=== PATIENT | male | born 1945 | race Asian ===

== ENCOUNTER 2018-02-14 07:41 | Inpatient (IN) | payer OTHER, MEDICAID ==
[~2018-02-14] VITALS: Ht 160 cm; Wt 51.8 kg
[~2018-02-14 07:41] MED LIST: NITROSTAT0.4 MG; SIMVASTATIN10 M1 PO
[2018-02-14 07:53] VITALS: Ht 160 cm; Wt 51.8 kg
[2018-02-14 07:59] LABS: BASOPHIL % 0.5 % (0-2); PLATELET COUNT 215 x10^3mcL (130-400); RED CELL DISTRIBUTION WIDTH 11.9 % (11.5-14.5)
[2018-02-14 08:07] LABS: CALCIUM 8.5 mg/dL (8.5-10.1); CHLORIDE SERUM 103 mmol/L (98-107); CREATININE SERUM 0.9 mg/dL (0.7-1.3); GLUCOSE SERUM 132 mg/dL (74-106); SODIUM SERUM 140 mmol/L (136-145)
[2018-02-14 08:13] LABS: ALBUMIN 3.6 g/dL (3.4-5.0); ALKALINE PHOSPHATASE 87 U/L (46-116); ALT/SGPT 26 U/L (16-63); AST/SGOT 18 U/L (15-37); TOTAL PROTEIN, SERUM 6.9 g/dL (6.4-8.2)
[2018-02-14 11:08] LABS: CHOLESTEROL/HDL RATIO 4.3; MAGNESIUM 2.1 mg/dL (1.8-2.4)
[2018-02-14 11:09] LABS: T3 TOTAL 1.1 ng/mL
[2018-02-14 11:38] LABS: FREE T4 0.97 ng/dL (0.76-1.46); FREE THYROXINE INDEX 2.6 ug/dL (1.4-4.5); T4(THYROXINE) 7.5 ug/dL (4.7-13.3)
[2018-02-14 11:51] VITALS: BP 106/57
[2018-02-14 17:08] VITALS: BP 121/68
[2018-02-14 17:45] LABS: microscopic required? NO
[2018-02-14 17:52] LABS: UA SPECIFIC GRAVITY 1.015 (1.005-1.035); urine erythrocyte NEGATIVE (NEGATIVE)
[2018-02-14 19:20] LABS: AMPHETAMINE QUAL UR NONE DETECTED (NEG <=1000)
[2018-02-14 20:34] VITALS: BP 125/70
[2018-02-15 06:39] VITALS: BP 114/58
[2018-02-15 07:57] LABS: BASOPHIL % 0.4 % (0-2); PLATELET COUNT 183 x10^3mcL (130-400)
[2018-02-15 07:59] LABS: RED CELL DISTRIBUTION WIDTH 11.4 % (11.5-14.5)
[2018-02-15 08:18] LABS: CALCIUM 8.7 mg/dL (8.5-10.1); CARBON DIOXIDE 31.3 mmol/L (21-32); CHLORIDE SERUM 106 mmol/L (98-107); CREATININE SERUM 0.7 mg/dL (0.7-1.3); GLUCOSE SERUM 85 mg/dL (74-106); SODIUM SERUM 140 mmol/L (136-145)
[2018-02-15 09:29] VITALS: BP 106/63
[2018-02-15] MEDS ORDERED: GOOD SENSE ASPI81 M3 PO (12:46)
[2018-02-15] MEDS ORDERED: LIPI10 PO (12:47)
[2018-02-15] MEDS ORDERED: METOPROLOL SUCC25 M2 PO (12:49)
[2018-02-15 12:52] VITALS: BP 124/70
[2018-02-15 17:01] VITALS: BP 124/71
[2018-02-15 17:46] VITALS: BP 124/71
== END 2018-02-15 19:42 | disposition home or self-care (01) | DRG 206 ==
LOC: ED 07:41 → DU 08:21
PROVIDERS: Emergency Medicine; Family Medicine Sports Medicine
DX: M94.0 Chondrocostal junction syndrome [Tietze] (principal); K21.9 Gastro-esophageal reflux disease without esophagitis; G90.9 Disorder of the autonomic nervous system, unspecified; E78.5 Hyperlipidemia, unspecified; I73.9 Peripheral vascular disease, unspecified; Z68.22 Body mass index [BMI] 22.0-22.9, adult; Z86.73 Personal history of transient ischemic attack (TIA), and cerebral infarction without residual deficits; Z87.891 Personal history of nicotine dependence; Z79.82 Long term (current) use of aspirin
CPT/HCPCS: 83880; 84439; J7030; Q0092

== ENCOUNTER 2018-04-10 23:06 | Inpatient (IN) | payer OTHER, MEDICAID ==
[~2018-04-10] VITALS: Ht 154.9 cm; Wt 49.5 kg
[~2018-04-10 23:06] MED LIST changes: +GOOD SENSE ASPI81 M3 PO; +LIPI10 PO; +METOPROLOL SUCC25 M2 PO
[2018-04-10 23:14] VITALS: Ht 154.9 cm; Wt 49.5 kg
[2018-04-10 23:54] LABS: CALCIUM 8.4 mg/dL (8.5-10.1); CARBON DIOXIDE 32.1 mmol/L (21-32); CHLORIDE SERUM 103 mmol/L (98-107); GLUCOSE SERUM 100 mg/dL (74-106); POTASSIUM SERUM 3.5 mmol/L (3.5-5.1); SODIUM SERUM 138 mmol/L (136-145)
[2018-04-10 23:59] LABS: ALBUMIN 3.6 g/dL (3.4-5.0); ALKALINE PHOSPHATASE 92 U/L (46-116); ALT/SGPT 26 U/L (16-63); AST/SGOT 23 U/L (15-37); LIPASE 283 IU/L (73-393)
[2018-04-11] LABS: BASOPHIL % 0.4 % (0-2); PLATELET COUNT 220 x10^3mcL (130-400)
[2018-04-11 00:04] LABS: RED CELL DISTRIBUTION WIDTH 10.9 % (11.5-14.5)
[2018-04-11 01:18] VITALS: BP 97/58
[2018-04-11 02:50] LABS: MAGNESIUM 2.2 mg/dL (1.8-2.4); PHOSPHOROUS 3.7 mg/dL (2.5-4.9)
[2018-04-11 02:54] LABS: CHOLESTEROL/HDL RATIO 3.8
[2018-04-11 02:57] LABS: T3 TOTAL 1.24 ng/mL
[2018-04-11 02:59] LABS: FREE T4 1.06 ng/dL (0.76-1.46); FREE THYROXINE INDEX 3.2 ug/dL (1.4-4.5); T4(THYROXINE) 8.8 ug/dL (4.7-13.3)
[2018-04-11 05:20] VITALS: BP 101/54
[2018-04-11 09:45] VITALS: BP 117/66; BP 129/76
[2018-04-11 12:05] LABS: microscopic required? NO
[2018-04-11 12:20] LABS: urine erythrocyte NEGATIVE (NEGATIVE)
[2018-04-11 13:35] VITALS: BP 115/65
[2018-04-11] MEDS ORDERED: PANTOPRAZOLE SO40 M1 PO (16:22)
[2018-04-11 16:42] VITALS: BP 115/65
[2018-04-11 17:05] VITALS: BP 116/68
== END 2018-04-11 18:49 | disposition home or self-care (01) | DRG 391 ==
LOC: ED 23:06 → DU 04-11 00:38
PROVIDERS: Emergency Medicine; Student in an Organized Health Care Education/Training Program
DX: K21.9 Gastro-esophageal reflux disease without esophagitis (principal); N17.0 Acute kidney failure with tubular necrosis; E83.51 Hypocalcemia; Z68.20 Body mass index [BMI] 20.0-20.9, adult; Z87.891 Personal history of nicotine dependence
CPT/HCPCS: 83880; 84439

== ENCOUNTER 2019-04-25 21:35 | Inpatient (IN) | payer OTHER, MEDICAID ==
[~2019-04-25] VITALS: Ht 152.4 cm; Wt 45.4 kg
[~2019-04-25 21:35] MED LIST changes: +PANTOPRAZOLE SO40 M1 PO
[2019-04-25 21:54] VITALS: Ht 152.4 cm; Wt 45.4 kg
[2019-04-25 22:32] LABS: BASOPHIL % 0.8 % (0-2); PLATELET COUNT 198 x10^3mcL (130-400); RED CELL DISTRIBUTION WIDTH 11.6 % (11.5-14.5)
[2019-04-25 22:41] LABS: CALCIUM 9.5 mg/dL (8.5-10.1); CARBON DIOXIDE 22.8 mmol/L (21-32); CHLORIDE SERUM 103 mmol/L (98-107); CREATININE SERUM 0.9 mg/dL (0.7-1.3); GLUCOSE SERUM 132 mg/dL (74-106); POTASSIUM SERUM 3.5 mmol/L (3.5-5.1); SODIUM SERUM 141 mmol/L (136-145)
[2019-04-25 22:48] LABS: ALBUMIN 3.9 g/dL (3.4-5.0); ALKALINE PHOSPHATASE 74 U/L (46-116); ALT/SGPT 23 U/L (16-63); AST/SGOT 17 U/L (15-37); BILIRUBIN TOTAL 1.58 mg/dL (0.20-1.00); LIPASE 104 IU/L (73-393); TOTAL PROTEIN, SERUM 7.2 g/dL (6.4-8.2)
[2019-04-25 23:54] LABS: UA SPECIFIC GRAVITY 1.025 (1.005-1.035); microscopic required? YES; urine erythrocyte NEGATIVE (NEGATIVE)
[2019-04-26 01:29] VITALS: BP 99/56
[2019-04-26 01:40] LABS: CHOLESTEROL/HDL RATIO 4.9; MAGNESIUM 2.4 mg/dL (1.8-2.4); PHOSPHOROUS 2.5 mg/dL (2.5-4.9)
[2019-04-26 05:37] VITALS: BP 114/62
[2019-04-26 07:43] LABS: BASOPHIL % 0.3 % (0-2); PLATELET COUNT 190 x10^3mcL (130-400); RED CELL DISTRIBUTION WIDTH 11.7 % (11.5-14.5)
[2019-04-26 08:16] LABS: CALCIUM 8.8 mg/dL (8.5-10.1); CARBON DIOXIDE 26.1 mmol/L (21-32); CHLORIDE SERUM 106 mmol/L (98-107); CREATININE SERUM 0.8 mg/dL (0.7-1.3); GLUCOSE SERUM 78 mg/dL (74-106); POTASSIUM SERUM 4.2 mmol/L (3.5-5.1); SODIUM SERUM 141 mmol/L (136-145)
[2019-04-26 09:49] VITALS: BP 124/68
[2019-04-26] MEDS ORDERED: COL100 PO (15:35)
[2019-04-26] MEDS ORDERED: METP PO (15:35)
[2019-04-26 16:28] VITALS: BP 124/68
== END 2019-04-26 19:15 | disposition home or self-care (01) | DRG 392 ==
LOC: ED 21:35 → MU 04-26 00:38
PROVIDERS: Emergency Medicine; ADMIT General Practice
DX: K59.00 Constipation, unspecified (principal); E87.2 Acidosis; Z68.1 Body mass index [BMI] 19.9 or less, adult; I10 Essential (primary) hypertension; E78.5 Hyperlipidemia, unspecified; I73.9 Peripheral vascular disease, unspecified; K52.9 Noninfective gastroenteritis and colitis, unspecified; Z86.73 Personal history of transient ischemic attack (TIA), and cerebral infarction without residual deficits
CPT/HCPCS: 83880; G0378; J2270; J2405; J7030; Q0092

== ENCOUNTER 2020-09-12 22:51 | Emergency (ER) | payer OTHER, MEDICAID ==
[~2020-09-12] VITALS: Ht 160 cm; Wt 50.3 kg
[~2020-09-12 22:51] MED LIST changes: +COL100 PO; +METP PO
[2020-09-12 23:12] VITALS: Ht 160 cm; Wt 50.3 kg
[2020-09-13 00:35] LABS: CALCIUM 9.2 mg/dL (8.5-10.1); CARBON DIOXIDE 31.4 mmol/L (21-32); CHLORIDE SERUM 102 mmol/L (98-107); CREATININE SERUM 0.8 mg/dL (0.7-1.3); GLUCOSE SERUM 98 mg/dL (74-106); POTASSIUM SERUM 4.1 mmol/L (3.5-5.1); SODIUM SERUM 139 mmol/L (136-145)
[2020-09-13 00:39] LABS: ALBUMIN 4.4 g/dL (3.4-5.0); ALKALINE PHOSPHATASE 102 U/L (46-116); ALT/SGPT 22 U/L (16-63); AST/SGOT 22 U/L (15-37); BILIRUBIN TOTAL 0.8 mg/dL (0.20-1.00); CHOLESTEROL 192 mg/dL (<200); CHOLESTEROL/HDL RATIO 4.1; HDL CHOLESTEROL 47 mg/dL (40-60); TRIGLYCERIDES 126 mg/dL (<150)
[2020-09-13 00:44] LABS: BASOPHIL % 0.4 % (0-2); PLATELET COUNT 206 x10^3mcL (130-400); RED CELL DISTRIBUTION WIDTH 11.4 % (11.5-14.5); T3 TOTAL 1.74 ng/mL
[2020-09-13 01:21] LABS: FREE T4 1.26 ng/dL (0.76-1.46); FREE THYROXINE INDEX 3.4 ug/dL (1.4-4.5)
[2020-09-13 01:23] VITALS: BP 131/58
== END 2020-09-13 01:23 | disposition home or self-care (01) ==
LOC: ED 22:51
PROVIDERS: Specialist
DX: I10 Essential (primary) hypertension (principal); R42 Dizziness and giddiness; E78.00 Pure hypercholesterolemia, unspecified; Z88.0 Allergy status to penicillin; Z88.1 Allergy status to other antibiotic agents
CPT/HCPCS: 84439